=== PATIENT | female | born 1970 | race Hispanic/Latino ===

== ENCOUNTER → 2025-01-04 | Outpatient (CLI) | payer OTHER ==
[~2025-01-04] MED LIST: AMOX1TAB16 PO; HYDR25TA PO; LEVO25TA54 PO; ONDA-243 PO; PANT20TA PO
--- NOTE | 2025-01-04 15:57 | HMCIMG ---
Nuclear medicine gastric emptying study HISTORY: gastroesophageal reflux. COMPARISON: No relevant prior studies. RADIOPHARMACEUTICAL: 1 mCi of technetium 99 sulfur colloid TECHNIQUE: Dynamic computer imaging and serial static images were performed over the anterior abdomen for 1 hour. Static images obtained up to 2 hours. By region of interest computer analysis, a time/activity curve for the stomach was generated and a T 1/2 for clearance of activity was determined. FINDINGS: Review of dynamic images does not demonstrate any gastroesophageal reflux. The normal pattern of gastric emptying is appreciated. T 1/2: 69 minutes (normal 55-90 minutes). Percent empty at 1 hour: 60 percent (less than 40 percent at one hour is consistent with delayed emptying). IMPRESSION: Normal gastric emptying. No evidence of gastric outlet obstruction. No evidence of gastric emptying delay or gastroparesis.
== END | disposition home or self-care (01) ==
LOC: RAH 07:07
PROVIDERS: ATTEND Surgery
DX: K21.9 Gastro-esophageal reflux disease without esophagitis (principal); K44.0 Diaphragmatic hernia with obstruction, without gangrene; K29.70 Gastritis, unspecified, without bleeding
CPT/HCPCS: 78264; A9541